=== PATIENT | female | born 2000 | race Two or more races ===

== ENCOUNTER → 2025-03-19 | Outpatient (REF) | payer OTHER | LOC: M PLALAB 14:22 | PROVIDERS: ATTEND Advanced Practice Midwife | DX: Z34.80 Encounter for supervision of other normal pregnancy, unspecified trimester (principal) ==

== ENCOUNTER → 2025-03-30 | Outpatient (CLI) | payer OTHER ==
[2025-03-30 14:02] LABS: PLATELET COUNT, AUTOMATED 192 10^3/uL (150-450)
[2025-03-30 14:38] LABS: HIV 1&2 SCREEN NEGATIVE (NEGATIVE)
[2025-03-30 14:47] LABS: HEPATITIS C VIRUS ABY INDEX < 0.02 INDEX (<0.8)
[2025-03-30 15:06] LABS: Trichomonas vaginalis (AMP) NOT DETECTED (NEGATIVE)
[2025-03-30 15:29] LABS: GC DNA AMPLIFICATION NEGATIVE (NEGATIVE)
== END ==
LOC: M PLALAB 10:57
PROVIDERS: ATTEND Advanced Practice Midwife
DX: Z34.80 Encounter for supervision of other normal pregnancy, unspecified trimester (principal)